=== PATIENT | male | born 1945 | race Caucasian/White ===

== ENCOUNTER → 2023-11-10 19:09 | Outpatient (REF) | payer BC, SELFPAY | LOC: MRI 3T 19:09 | PROVIDERS: ATTENDING PHYSICIAN Specialist; FAMILY PHYSICIAN Family Medicine | DX: N40.2 Nodular prostate without lower urinary tract symptoms (principal); D40.0 Neoplasm of uncertain behavior of prostate | CPT/HCPCS: 72197; A9575 ==

== ENCOUNTER → 2024-01-15 06:19 | Day surgery (SDC) | payer BC, SELFPAY | LOC: GI 06:19 | PROVIDERS: ATTENDING PHYSICIAN Internal Medicine Gastroenterology; FAMILY PHYSICIAN Family Medicine | DX: Z12.11 Encounter for screening for malignant neoplasm of colon (principal); K64.8 Other hemorrhoids; K57.30 Diverticulosis of large intestine without perforation or abscess without bleeding; Z86.0100 Personal history of colon polyps, unspecified | CPT/HCPCS: G0105 ==

== ENCOUNTER 2024-02-11 06:04 | Day surgery (SDC) | payer BC, SELFPAY ==
[2024-02-03 10:50] LABS: Hematocrit 43.4 % (39.0-52.0); Hemoglobin 14.5 g/dL (13.0-18.0); Mean Corp Hgb Conc. 33.4 g/dL (33.0-37.0); Mean Corpuscular Hgb 28.7 pg (27.0-31.0); Mean Corpuscular Volume 85.9 fL (80.0-94.0); Mean Platelet Volume 10.2 fL (7.4-10.4); Platelet Count 250 10^3/uL (130-400); Red Blood Cell Count 5.05 10^6/uL (4.70-6.10); Red Cell Dist. Width 14.2 % (11.5-14.5)
[2024-02-03 11:03] LABS: Blood Urea Nitrogen 18 mg/dl (9-20); Calcium 9.5 mg/dl (8.4-10.2); Carbon Dioxide 28 mmol/L (22-30); Chloride 104 mmol/L (98-107); Glucose 88 mg/dl (70-99); Potassium 4.6 mmol/L (3.5-5.1); Sodium 142 mmol/L (135-145); eGFR > 60.00
[2024-02-03 12:29] VITALS: BMI 27.7
[2024-02-11] VITALS (20 sets, daily range): BP systolic 113–153; BP diastolic 50–69; BMI 27.7
[2024-02-11] MEDS: NORMOSOL-R/PLASMALYTE-A 1000 IV (06:34)
[2024-02-11] MEDS: NEOMYCIN ENEMA 1 BOTTLE RECTAL (06:34)
[2024-02-11] MEDS: TYLENOL 1000 MG PO (07:00)
[2024-02-11 11:50] LABS: Glucose - Point of Care 115 mg/dl (70-99)
[2024-02-11] MEDS: COLACE PO (13:57)
[2024-02-11 16:44] LABS: Glucose - Point of Care 116 mg/dl (70-99)
[2024-02-11] MEDS: LIPITOR 20 MG PO (17:56)
[2024-02-11] MEDS: TORADOL 15 MG IV ×2 (17:56→23:33)
[2024-02-11] MEDS: COLACE 100 MG PO (17:56)
[2024-02-11] MEDS: POLYSPORIN/DOUBLE ANTIBIOTIC 1 APPLIC TOPICAL (20:48)
[2024-02-11] MEDS: OCUVITE SOFTGEL 1 CAP PO (20:48)
[2024-02-11 22:05] LABS: Glucose - Point of Care 153 mg/dl (70-99)
[2024-02-12 03:50] VITALS: BP 109/63
--- NOTE | 2024-02-12 04:19 | DOWNTIME ---
There was a [employer] Senior Business Process Analyst Downtime on 02/12/2024 from 0200 to 02/12/2024 at 0325 . Downtime documentation of patient's care, including medication administrations, has been reconciled in the electronic record per guidelines. Refer to the
patient's paper chart under the miscellaneous tab to see printed paper medication records and downtime forms.
[2024-02-12] MEDS: TORADOL 15 MG IV ×2 (05:20→11:29)
[2024-02-12 06:25] LABS: Hemoglobin 12.3 g/dL (13.0-18.0); Mean Corp Hgb Conc. 33.2 g/dL (33.0-37.0); Mean Corpuscular Hgb 28.8 pg (27.0-31.0); Mean Corpuscular Volume 86.7 fL (80.0-94.0); Mean Platelet Volume 10.4 fL (7.4-10.4); Platelet Count 216 10^3/uL (130-400); Red Blood Cell Count 4.27 10^6/uL (4.70-6.10); Red Cell Dist. Width 14.2 % (11.5-14.5); White Blood Cell Count 12.1 10^3/uL (4.8-10.8)
[2024-02-12 06:48] LABS: Blood Urea Nitrogen 21 mg/dl (9-20); Calcium 8.4 mg/dl (8.4-10.2); Carbon Dioxide 24 mmol/L (22-30); Chloride 103 mmol/L (98-107); Estimated Creatinine Clearance 74 ml/min; Glucose 103 mg/dl (70-99); Potassium 4.2 mmol/L (3.5-5.1); Sodium 137 mmol/L (135-145); eGFR > 60.00
[2024-02-12 07:10] VITALS: BP 133/64
[2024-02-12 07:10] LABS: Glucose - Point of Care 104 mg/dl (70-99)
[2024-02-12] MEDS: FARXIGA 10 MG PO (07:53)
[2024-02-12] MEDS: COLACE 100 MG PO ×2 (07:54→11:29)
[2024-02-12] MEDS: OCUVITE SOFTGEL 1 CAP PO (07:54)
[2024-02-12] MEDS: ZESTRIL 5 MG PO (07:54)
[2024-02-12] MEDS: POLYSPORIN/DOUBLE ANTIBIOTIC 1 APPLIC TOPICAL (07:54)
[2024-02-12] MEDS: LASIX 20 MG PO (07:54)
[2024-02-12] MEDS: TOPROL XL 25 MG PO (07:54)
--- NOTE | 2024-02-12 10:14 | W.PN.URO.CBU ---
Today's Communication / Plan
-
dc
Assessment / Plan
-
stable
Diagnosis
-
Date of Service: February 12, 2024
-
Patient Diagnosis: prostate ca s/p prostatectomy
Post Op Day: 1
Subjective
-
'didn't sleep well bc of the bed'
modest pain
Objective
-
Vital Signs
Temp Pulse Resp BP Pulse Ox
98.4 F 67 16 133/64 97
02/12/24 07:10 02/12/24 07:10 02/12/24 07:10 02/12/24 07:54 02/12/24 07:10
Intake and Output
02/11/24 02/12/24 02/13/24
06:59 06:59 06:59
Intake Total 1870 / 1870
Output Total 1775 / 1775
Balance 95 / 95
Intake:
Oral fluids 1220 / 1220
IV fluids (Total) 650 / 650
Normosol 250 / 250
Output:
Urine, Vilchis 1774 / 1774
Laboratory Results
02/12/24 05:21
02/12/24 05:21
Physical Exam
-
General - well developed, well nourished, no acute distres
Abdomen - soft, non-tender, positive bowel sounds, no distention
Genitalia - yellow-green urine via Vilchis
Rectal - normal
Skin - warm & dry with no rash
Neuro - AOx3, no motor deficits
Extremities - no clubbing, no cyanosis, no edema
Dressings- clean, dry, intact
--- NOTE | 2024-02-12 10:32 | CM ---
Reviewed the chart notes and spoke with the patient at the bedside. Patient being discharged to home today. Consult for VN received. Patient selected VN, referral sent via [facility]. The patient resides with his spouse in a two story home
with two steps to enter. No DME/VN/SNF in the past. Pharmacy of choice is the [facility]. Patient's spouse will provide transportation. CM continues to be available to patient/family and is monitoring medical plan for needs at
discharge.
Plan: Discharge to home with VN services.
[2024-02-12 11:25] VITALS: BP 126/63
[2024-02-12 11:58] LABS: Glucose - Point of Care 109 mg/dl (70-99)
--- NOTE | 2024-02-12 12:09 | VNURNOTE ---
Home Health Liaison met with patient to discuss [facility] nurse/therapy, visits, schedule and homebound status. Patient is agreeable and understands that visits at home will be 2-3 x per week to assess and teach medical and james management. [facility]
brochure provided with contact information. Patient is aware that [facility] will contact them for start of care in 1-2 days after discharge from .
[facility] referral updated in [facility].
== END 2024-02-12 13:58 | disposition home or self-care (01) ==
LOC: SDS 06:04
PROVIDERS: ATTENDING PHYSICIAN Specialist; FAMILY PHYSICIAN Family Medicine; OTHER PHYSICIAN Internal Medicine
DX: C61 Malignant neoplasm of prostate (principal)
CPT/HCPCS: 55866; 38571; 88305; 88307; 88309; 36415; 80048; 82962; 85027; 93005

== ENCOUNTER 2024-02-25 21:45 | Emergency (ER) | payer BC, SELFPAY ==
[2024-02-25 21:45] VITALS: BP 188/93
[2024-02-25 22:04] LABS: Urine Albumin Trace (Neg - Trace); Urine Bilirubin Negative (Negative); Urine Character Clear (Clear); Urine Color Yellow; Urine Glucose 3+ (Negative); Urine Ketone Negative (Negative); Urine Leukocyte Trace (Negative); Urine Nitrite Negative (Negative); Urine Occult Blood 4+ (Negative); Urine Specific Gravity 1.015 (<1.030); Urine Urobilinogen Negative (Neg - 1+)
[2024-02-25 22:08] LABS: % Basophils 0.7 % (0-2); % Eosinophils 2.8 % (0-6); % Immature Granulocytes 0.3 % (0-0.5); % Lymphocytes 19.1 % (20.5-51.1); % Monocytes 7.9 % (1.7-9.3); % Neutrophils 69.2 % (42.2-75.2); Absolute Basophils 0.1 10^3/uL (0-0.2); Absolute Eosinophils 0.4 10^3/uL (0-0.7); Absolute Lymphocytes 2.4 10^3/uL (1.2-3.4); Absolute Neutrophils 8.5 10^3/uL (1.4-6.5); Hematocrit 40.8 % (39.0-52.0); Hemoglobin 13.8 g/dL (13.0-18.0); Mean Corp Hgb Conc. 33.8 g/dL (33.0-37.0); Mean Corpuscular Hgb 28.6 pg (27.0-31.0); Mean Corpuscular Volume 84.6 fL (80.0-94.0); Mean Platelet Volume 9.3 fL (7.4-10.4); Nucleated Red Blood Cells % 0 % (-); Platelet Count 348 10^3/uL (130-400); Red Blood Cell Count 4.82 10^6/uL (4.70-6.10); Red Cell Dist. Width 13.6 % (11.5-14.5); White Blood Cell Count 12.3 10^3/uL (4.8-10.8)
[2024-02-25 22:12] LABS: Urine Urothelial Cell 0-2 /LPF (FEW)
[2024-02-25 22:13] LABS: Urine Bacteria Few (Negative); Urine Red Blood Cell 50-60 /HPF (0-2); Urine White Cell 16-20 /HPF (0-5)
[2024-02-25 22:21] LABS: ALT (SGPT) 24 U/L (0-50); AST (SGOT) 25 U/L (17-59); Albumin 4.7 g/dl (3.5-5.0); Alkaline Phosphatase 83 U/L (38-126); Blood Urea Nitrogen 17 mg/dl (9-20); Calcium 9.8 mg/dl (8.4-10.2); Carbon Dioxide 24 mmol/L (22-30); Chloride 100 mmol/L (98-107); Glucose 104 mg/dl (70-99); Lipase 205 U/L (23-300); Potassium 3.7 mmol/L (3.5-5.1); Sodium 137 mmol/L (135-145); Total Bilirubin 0.3 mg/dl (0.2-1.3); Total Protein 7.3 g/dl (6.3-8.2); eGFR > 60.00
[2024-02-25 23:39] VITALS: BP 178/81
[2024-02-25 23:51] VITALS: BMI 29.6
--- NOTE | 2024-02-25 23:53 | ED.GENMED ---
History of Present Illness
General
Chief Complaint: Abdominal Pain
Source: patient
Exam Limitations: none
Time Seen by Provider: 02/25/24 22:21
Nursing documentation reviewed up to this point in time: agreed with
History of Present Illness
History of Present Illness:
The patient is a very pleasant 78-year-old man with a past medical history of A-fib and prostate cancer who on 02/12/2024 underwent a robotic laparoscopic total prostatectomy done by Dr. Peña. The patient reports that he had been doing well
up until the last few days when he has been experiencing severe intermittent lower abdominal pain and difficulty emptying his bladder. Additionally, patient reports several weeks of decreased ability to have good bowel movements since the surgery.
Patient reports that he had a bowel movement today but it was very small and hard. Patient reports occasional nausea but no vomiting. He denies fever and chills. He reports that he spoke to Dr. Peacock on the phone 2 days ago and antibiotics
were called in for a possible UTI but he was unable to fill them due to the holiday.
Past History
Past History
ED Past Medical History: Arrthythmia, Cancer (Prostate cancer), HTN, Hypercholesterolemia, Other (Prostatic hypertrophy, temporal arteritis) and Other (Cardiomyopathy)
ED Past Surgical History: Tonsilectomy, Urological and Other (Cardiac ablation)
Social History
Tobacco: Non-smoker
Alcohol: Other
Drug: None
Personal:
Living: with family
Employment: Other
Family History
Family History: Other
Review of Systems
Review of Systems
Allergies reviewed?: Yes
All Other Systems: ROS reviewed and negative except as documented in HPI and ROS
Constitutional: Reports no symptoms
EENT: Reports no symptoms
Respiratory: Reports no symptoms
Phy Exam
Physical Exam
Physical Exam:
Physical Exam
General: no apparent distress, not acutely ill, well appearing
Neck: supple. no meningeal signs. normal psoterior pharynx
Heart: s1/s2 regular rate and rhythm, no murmur. equal radial pulses.
Lungs: no acute respiratory distress. clear bilaterally
Abdomen: Soft. Suprapubic fullness and tenderness. Normal bowel sounds.
Neuro: alert and oriented. no focal neurological deficits
Skin: no rash
Psychiatric: well kept. interactive and cooperative
Extremities: no edema. no calf tenderness. negative homans. good distal pulses
Course
Orders/Labs/Results
Orders:
Orders
02/25/24 21:57
Complete Blood Count/With Diff Urgent
Comprehensive Metabolic Panel Urgent
Lipase Urgent
Urine Microscopic Reflex Cult Urgent
Urine Reflex Culture from [facility] [Urinalysis Reflex To Culture] Urgent
Date Specimen was Collected: 02/25/24
Time Specimen was Collected: 21:54
Urine Culture Urgent
[facility] Source: U
Specimen Description:
Date Specimen was Collected: 02/25/24
Time Specimen was Collected: 21:54
02/25/24 23:46
Vilchis Placement- Treatment ONCE
Reason for insertion: Acute Retention
02/25/24 23:47
CT Abd/pelvis W Iv Cont Urgent
Comment:
Reason For Exam: lower abdominal pain
Ciprofloxacin 400 mg/[id number] [Cipro 400 mg] 200 ml IV NOW
02/26/24 00:44
Ciprofloxacin 400 mg/[id number] [Cipro 400 mg] 200 ml IV NOW
Abnormal Lab Results
02/25/24
21:57
WBC 12.3 H 10^3/uL
(4.8-10.8)
Absolute Neuts (auto) 8.5 H 10^3/uL
(1.4-6.5)
Absolute Monos (auto) 1.0 H 10^3/uL
(0.1-0.6)
Lymphocytes % 19.1 L %
(20.5-51.1)
Glucose 104 H mg/dl
(70-99)
Ur Occult Blood Reflex 4+ A
(Negative)
Leukocyte Esterase Rfl Trace A
(Negative)
Urine RBC 50-60 A /HPF
(0-2)
Urine WBC (Reflex) 16-20 A /HPF
(0-5)
Urine Bacteria (Reflex) Few A
(Negative)
Urine Glucose 3+ A
(Negative)
02/25/24 21:57
02/25/24 21:57
Vital Signs
Initial and Last Documented VS:
Initial Vital Signs
Temp Pulse Resp BP Pulse Ox
97.6 F 82 20 188/93 99
02/25/24 21:45 02/25/24 21:45 02/25/24 21:45 02/25/24 21:45 02/25/24 21:45
Last Documented Vital Signs
Temp Pulse Resp BP Pulse Ox
97.6 F 64 18 178/81 99
02/25/24 21:45 02/25/24 23:39 02/25/24 23:39 02/25/24 23:39 02/25/24 23:45
MDM/Problems Addressed
Differential Diagnosis Includes:
Acute constipation, acute urinary retention, UTI
MDM/Problems Addressed:
Patient presents with acute urinary retention and constipation
Chronic conditions affecting care: Previous abdomnial surgery
Acute Exacerbation and/or Progression of Chronic Illness: Previous abdomnial surgery
*Radiology
Radiology exam reviewed: radiology read reviewed
*Pulse Oximetry
Patient hypoxic: no
*EKG
Interpreted by ED Provider?: NA
*Body And Frame Technician Interpretation
Rate: Body And Frame Technician- N/A
*Critical Care Note
Total Time (30-74mins, 75-104mins- exclusive of procedures): Not Applicable
Data Reviewed
Review of Other/Old Records Reveals: Operative Reports (Operative report reviewed from Dr. Peña from 02/12/2024 when patient underwent robotic prostatectomy)
Source: patient and spouse
Patient Management
Social determinants of health affecting care: Living situation and Strong social support
Discussion with other providers: Other (I told Dr. Peacock that patient was here. He was agreeable to sending patient home with Cipro and Vilchis catheter and follow-up with urology)
Escalation/DeEscalation of care consider admission/obs:
Patient appears well and comfortable. He reports that the Vilchis placement made him feel so much comfortable. He is very happy to go home. CT shows no sign of postoperative complication. Patient encouraged return with any vomiting or fever.
ED Attending Note
-
Portions of this chart may have been created with voice recognition software.� Occasional wrong word or��sound alike� substitutions may have occurred due to the inherent limitations of voice recognition software.
Discharge Plan
Departure
Patient Disposition: Home (Routine Discharge)
Date of Disposition: 02/26/24
Time of Disposition: :24
Patient with high blood pressure during this ER visit?: Yes
Condition: Good
Covid-19: Not Applicable
Discharge Problem:
Acute UTI, Acute urinary retention
Instructions: Urinary tract infections in adults, How to Care for Your Vilchis Catheter, Male, Urinary retention - Discharge instructions
Prescriptions:
New
ciprofloxacin HCl [Cipro] 250 mg tablet
250 mg PO BID Qty: 14 0RF
No Action
multivitamin Tablet
1 tab PO DAILY
atorvastatin 20 mg Tablet
20 mg PO QPM
tamsulosin 0.4 mg Capsule
0.4 mg PO BID
PreserVision AREDS-2 250-90-40-1 mg Capsule
1 tab PO BID
Eliquis 5 mg Tablet
5 mg PO BID Qty: 60 0RF
Jardiance 10 mg Tablet
10 mg PO DAILY Qty: 30 0RF
furosemide 20 mg Tablet
20 mg PO DAILY Qty: 30 0RF
metoprolol succinate 25 mg Tablet Extended Release 24 Hr
25 mg PO DAILY Qty: 30 0RF
coenzyme Q10 200 mg Capsule
200 mg PO QPM
lisinopril 5 mg Tablet
5 mg PO DAILY
ipratropium bromide 21 mcg (0.03 %) Upson,Non-Aerosol
2 spray INTRANASAL BID PRN (Reason: congestion)
naproxen sodium [Aleve] 220 mg capsule
440 mg PO BID PRN (Reason: pain) Qty: 1 0RF
tramadol 50 mg tablet
50 mg PO TID PRN (Reason: severe pain) Qty: 10 0RF
Referrals:
Devan Hylton MD [Family Provider] -
Russel Peña MD [Active] - (Call tomorrow to see as soon as possible)
Activity Restrictions/Additional Instructions:
Call urology tomorrow to set up an appointment to see as soon as possible. Please return with any fever, chills, or vomiting
Interventions
Interventions:
*Risk Screen - Suicide Last Done: 02/25/24 21:45
*General Assessment Last Done: 02/25/24 21:45
*Neglect/Abuse Screening Last Done: 02/25/24 21:45
ED- Fall Risk Assessment Last Done: 02/25/24 23:16
*ED COVID-19 Vaccine History Last Done: 02/25/24 21:53
HO-Iapedw-Qobfioamdg Assessment Last Done: 02/25/24 23:16
Discharge Date and Time
Print Language: PORTUGUESE
--- NOTE | 2024-02-26 00:23 | EDRN ---
Denro. requested from pharmacy at this time.
[2024-02-26] MEDS: CIPRO 400 MG 200 IV (00:54)
[2024-02-26 02:06] VITALS: BP 146/82
== END 2024-02-26 02:08 | disposition home or self-care (01) ==
LOC: EMR 21:45
PROVIDERS: EMERGENCY PHYSICIAN Emergency Medicine; FAMILY PHYSICIAN Family Medicine
DX: R10.30 Lower abdominal pain, unspecified (principal); I10 Essential (primary) hypertension; E78.00 Pure hypercholesterolemia, unspecified; N40.0 Benign prostatic hyperplasia without lower urinary tract symptoms; I48.91 Unspecified atrial fibrillation; I42.9 Cardiomyopathy, unspecified; K59.00 Constipation, unspecified; Z85.46 Personal history of malignant neoplasm of prostate; Z90.79 Acquired absence of other genital organ(s)
CPT/HCPCS: 99284; 96374; 74177; 80053; 81003; 81015; 83690; 85025; 87086; Q9967

== ENCOUNTER → 2024-08-25 14:20 | Outpatient (REF) | payer BC, SELFPAY | LOC: HWRAD 14:20 | PROVIDERS: ATTENDING PHYSICIAN Nurse Practitioner Family; FAMILY PHYSICIAN Family Medicine | DX: K40.90 Unilateral inguinal hernia, without obstruction or gangrene, not specified as recurrent (principal); C61 Malignant neoplasm of prostate | CPT/HCPCS: 76882 ==

== ENCOUNTER 2025-01-10 06:15 | Day surgery (SDC) | payer BC, SELFPAY ==
--- NOTE | 2025-01-10 06:46 | HP.FOC2 ---
Focused History & Physical
Chief Complaint
HPI:
Chief Complaint: Recurrent right inguinal hernia
HPI / Indication for Planned Procedure: 79-year-old male recently seen in outpatient surgical evaluation secondary to a history of visible swelling and a palpable lump in the right inguinal region. He has an awareness of his hernia being present
but no significant pain. No symptoms suggestive of intermittent incarceration or obstruction.
Previous history of open right inguinal herniorrhaphy at 12 years old, laparoscopic left inguinal hernia repair and robotic radical prostatectomy with pelvic lymphadenectomy
Relevant Past Medical History: Other (Cardiomyopathy, hypertension, hypercholesterolemia, A-fib, temporal arteritis, giant cell arteritis, history of prostate cancer)
Relevant Social History: Negative
Relevant Family History: Negative
Relevant Past Surgical History: Positive for (Right inguinal hernia repair, cardiac ablation, radical prostatectomy, lap left inguinal hernia repair)
Review of Systems
Review of Pertinent Systems: All Systems Negative
Medication
See Medication form for detailed medications: Yes
Medication List (including Herbals & OTC):
atorvastatin 20 mg tablet 20 mg PO 1800 High cholesterol 02/12/22
multivitamin 1 tab PO DAILY Supplement 02/12/22
tamsulosin 0.4 mg capsule 0.4 mg PO BID Urinary issue 02/12/22
vit C 250 mg-vit E 90 mg-zinc 40 mg-copper 1 [id number] capsule (PreserVision AREDS-2) 1 tab PO BID Supplement 02/12/22
apixaban 5 mg tablet (Eliquis) 5 mg PO BID Blood clot prevention/tx #60 tabs 06/10/22
furosemide 20 mg tablet 20 mg PO DAILY Fluid retention/Swelling #30 tabs 06/10/22
metoprolol succinate 25 mg tablet,extended release 24 hr 25 mg PO DAILY Heart Failure #30 tabs 06/10/22
lisinopril 5 mg tablet 5 mg PO DAILY 02/04/24
coenzyme Q10 100 mg capsule 100 mg PO DAILY 01/06/25
empagliflozin 10 mg tablet (Jardiance) 10 mg PO DAILY 01/06/25
ipratropium bromide 42 mcg (0.06 %) nasal spray 2 spray intranasal BID 01/06/25
magnesium glycinate 120 mg (as glycinate) capsule 240 mg PO 1800 01/06/25
melatonin 10 mg tablet 10 mg PO QPM 01/06/25
Medications Reviewed: Yes
Allergies and Reactions
Patient has Allergies: No
Noted Allergies and Reactions:
Allergy/AdvReac Type Severity Reaction Status Date / Time
No Known Allergies Allergy Verified 01/06/25 14:19
Pertinent Physical Exam
All Other Systems: Negative
Head/Neck: Normal
Lungs: Normal
Heart: Normal
Abdomen: Other (Right inguinal hernia, reducible)
Extremities: Normal
Neurological: Normal
Diagnosis / Assessment
79-year-old male presenting for scheduled operative correction symptomatic right inguinal hernia
Plan / Procedure
Open right inguinal hernia repair with mesh
Anesthesia/Sedation to be done by Anesthesia Provider: Yes
--- NOTE | 2025-01-10 06:51 | W.SUR.PREOP ---
Pre-Operative Surgical Note
-
I have examined this patient prior to the performance of the scheduled procedure.
The patient's condition is unchanged from the time of the current History and
Physical and the patient is able to undergo the scheduled procedure.
[2025-01-10] MEDS: TYLENOL 1000 MG PO (07:03)
[2025-01-10] MEDS: NORMOSOL-R/PLASMALYTE-A 1000 IV (07:11)
[2025-01-10 07:15] VITALS: BP 171/88
[2025-01-10 07:16] VITALS: BMI 28.8
[2025-01-10 07:20] VITALS: BMI 28.8
--- NOTE | 2025-01-10 09:13 | W.IMMPOSTOP ---
Addendum entered and electronically signed by Roberto Carlos Lamb MD 01/10/25 09:50:
#[id number]
Original Note:
Surgical Immed Post Op Note
-
Primary Surgeon: Roberto Carlos Lamb MD
Assisting Surgeon: DEYANIRA Munguia
Jesús Ribeiro
Pre-op Diagnosis: Recurrent right inguinal hernia
Post-op Diagnosis: Recurrent right inguinal hernia
Procedure Performed: Open Parish tension-free mesh repair recurrent right inguinal hernia; Bard soft mesh 15 cm x 7.5 cm
Anesthesia Type: MAC +1% lidocaine and 0.25% Marcaine with epinephrine
Specimen / Cultures: None
Estimated Blood Loss: 8 mL
Complications: None immediate
Operative Findings: Right indirect inguinal hernia; hernia sac reduced off cord and ligated. Right direct inguinal weakness in the floor of the inguinal canal. Onlay tension-free mesh repair Bard soft 15 cm x 7.5 cm. Mesh secured to shelving edge
with 2-0 Prolene running continuous. Conjoined tendon fixation and lateral fixation with 2-0 PDS/Maxon.
[2025-01-10 09:17] VITALS: BP 111/54
[2025-01-10 09:30] VITALS: BP 115/63
[2025-01-10 09:45] VITALS: BP 119/64
[2025-01-10 10:00] VITALS: BP 114/62
[2025-01-10 10:15] VITALS: BP 120/61
== END 2025-01-10 10:18 | disposition home or self-care (01) ==
LOC: SDS 06:15
PROVIDERS: ATTENDING PHYSICIAN Surgery
DX: K40.91 Unilateral inguinal hernia, without obstruction or gangrene, recurrent (principal)
CPT/HCPCS: 49520